=== PATIENT | female | born 1940 | race Two or more races ===

== ENCOUNTER 2016-11-29 18:47 | Emergency (ER) | payer OTHER ==
[~2016-11-29] VITALS: Ht 154.9 cm; Wt 54.4 kg
[2016-11-29 20:07] LABS: Basophils # (auto) 0 uL; Basophils % (auto) 0.5 % (0.0-2.0); Eosinophils # (auto) 0.1 uL; Eosinophils % (auto) 1.2 % (0.0-7.0); Hematocrit 45.5 % (36.0-46.0); Hemoglobin 14.3 g/dL (12.2-16.2); Lymphocytes # (auto) 1.2 uL; Lymphocytes % (auto) 12.2 % (10.0-50.0); Mean Corpuscular Hgb Conc. 31.4 g/dL (32.0-36.0); Mean Corpuscular Volume 92.5 fL (80.0-100.0); Mean Platelet Volume 8.5 fL (7.4-10.4); Monocytes # (auto) 0.7 uL; Monocytes % (auto) 6.6 % (0.0-12.0); Neutrophils # (auto) 7.9 uL; Neutrophils % (auto) 79.5 % (37.0-80.0); Platelet Count (auto) 346 10^3/uL (140-450); Red Cell Distribution Width 14.6 % (11.6-16.0); White Blood Cell 9.9 10^3/uL (4.4-10.8)
[2016-11-29 20:42] LABS: Albumin 3.4 g/dL (3.4-5.0); B-Type Natriuretic Peptide 26.59 pg/mL (0-100); BUN/Creatinine Ratio 19.6; Bilirubin, Total 0.6 mg/dL (0.2-1.0); Calcium 9.7 mg/dL (8.5-10.1); Potassium 3.1 mmol/L (3.5-5.1); Total Protein 7.5 g/dL (6.4-8.2)
[2016-11-29 20:48] LABS: Temperature: 21.9 C (20.0-25.0)
[2016-11-29] MEDS ORDERED: POTASSIUM CHL 20MEQ/100ML 100 ML IV ONE (22:00)
[2016-11-29] MEDS ORDERED: cefTRIAXone 1GM/50ML D5W 50 ML IV ONE (22:00)
[2016-11-30 00:38] VITALS: BP 124/56
== END 2016-11-29 21:49 | disposition short-term general hospital (02) ==
LOC: ER 18:50
DX: J18.9 Pneumonia, unspecified organism (principal); R13.10 Dysphagia, unspecified; E87.6 Hypokalemia; I11.0 Hypertensive heart disease with heart failure; I50.9 Heart failure, unspecified; E78.5 Hyperlipidemia, unspecified; F17.210 Nicotine dependence, cigarettes, uncomplicated
CPT/HCPCS: 36415; 71010; 80053; 83735; 83880; 84484; 85025; 85049; 87040; 93005; 94761; 96361; 96365; 99285; J0696; J3480; J7030

== ENCOUNTER 2016-12-04 21:48 | Emergency (ER) | payer OTHER ==
[~2016-12-04] VITALS: Ht 154.9 cm; Wt 54.4 kg
[2016-12-04 23:24] LABS: Basophils # (auto) 0 uL; Basophils % (auto) 0.2 % (0.0-2.0); Eosinophils # (auto) 0.1 uL; Eosinophils % (auto) 0.7 % (0.0-7.0); Hematocrit 45.6 % (36.0-46.0); Hemoglobin 14.2 g/dL (12.2-16.2); Lymphocytes # (auto) 0.8 uL; Lymphocytes % (auto) 7.1 % (10.0-50.0); Mean Corpuscular Hgb Conc. 31.2 g/dL (32.0-36.0); Mean Corpuscular Volume 92.9 fL (80.0-100.0); Mean Platelet Volume 9.3 fL (7.4-10.4); Monocytes # (auto) 0.5 uL; Monocytes % (auto) 5.1 % (0.0-12.0); Neutrophils # (auto) 9.2 uL; Neutrophils % (auto) 86.9 % (37.0-80.0); Platelet Count (auto) 327 10^3/uL (140-450); Red Cell Distribution Width 14.7 % (11.6-16.0); White Blood Cell 10.6 10^3/uL (4.4-10.8)
[2016-12-04 23:44] LABS: Albumin 3.3 g/dL (3.4-5.0); Calcium 9.1 mg/dL (8.5-10.1); Potassium 3.5 mmol/L (3.5-5.1)
[2016-12-04 23:45] LABS: BUN/Creatinine Ratio 29.4
[2016-12-04] MEDS ORDERED: ALBUTEROL SULF 2.5 MG/0.5ML(0.5%) NEB SOLN NEB ONE (23:45)
[2016-12-04] MEDS ORDERED: IPRATROPIUM BROM 0.5 MG/2.5ML INH SOL NEB ONE (23:45)
[2016-12-04 23:47] LABS: Bilirubin, Total 0.9 mg/dL (0.2-1.0); Total Protein 7.8 g/dL (6.4-8.2)
[2016-12-04 23:49] LABS: INR 1.11 (0.9-1.15); Partial Thromboplastin Time 25.6 sec (22.64-33.71); Prothrombin Time 11.4 sec (9.37-12.3)
[2016-12-04 23:54] LABS: B-Type Natriuretic Peptide 55.8 pg/mL (0-100)
[2016-12-05 03:14] VITALS: BP 124/73
[2016-12-05] MEDS ORDERED: AMOXICILLIN TRIHYDRATE 250 MG CAP PO ONE (03:15)
== END 2016-12-05 04:03 | disposition home or self-care (01) ==
LOC: EDBD 21:48 → EDSEX 21:48 → ER 21:52
DX: J20.9 Acute bronchitis, unspecified (principal); I11.0 Hypertensive heart disease with heart failure; I50.9 Heart failure, unspecified; Z85.3 Personal history of malignant neoplasm of breast
CPT/HCPCS: 36415; 71010; 80053; 83880; 84484; 85025; 85049; 85379; 85610; 85730; 93005; 94640

== ENCOUNTER 2016-12-10 06:25 | Emergency (ER) | payer OTHER, MEDICARE ==
[~2016-12-10] VITALS: Ht 157.5 cm; Wt 61.2 kg
[2016-12-10] MEDS ORDERED: ALBUTEROL SULF 2.5 MG/0.5ML(0.5%) NEB SOLN NEB ONE (07:30)
[2016-12-10] MEDS ORDERED: IPRATROPIUM BROM 0.5 MG/2.5ML INH SOL NEB ONE (07:30)
[2016-12-10 07:32] LABS: Albumin 3.9 g/dL (3.4-5.0); BUN/Creatinine Ratio 16.7; Bilirubin, Total 0.4 mg/dL (0.2-1.0); Calcium 9.2 mg/dL (8.5-10.1); Potassium 4.6 mmol/L (3.5-5.1); Total Protein 8.4 g/dL (6.4-8.2)
[2016-12-10 07:38] LABS: Basophils # (auto) 0 uL; DEFINITIVE VIEW TRANSMISSION; Eosinophils # (auto) 0.1 uL; Eosinophils % (auto) 0.6 % (0.0-7.0); Hematocrit 48.8 % (36.0-46.0); Hemoglobin 15.2 g/dL (12.2-16.2); Lymphocytes # (auto) 1.4 uL; Mean Corpuscular Hemoglobin 29.3 pg (28.0-32.0); Mean Corpuscular Hgb Conc. 31.1 g/dL (32.0-36.0); Mean Corpuscular Volume 94.1 fL (80.0-100.0); Mean Platelet Volume 9.6 fL (7.4-10.4); Monocytes # (auto) 0.7 uL; Monocytes % (auto) 5.3 % (0.0-12.0); Neutrophils # (auto) 10.6 uL; Neutrophils % (auto) 83.1 % (37.0-80.0); Platelet Count (auto) 277 10^3/uL (140-450); Red Cell Distribution Width 14.1 % (11.6-16.0); White Blood Cell 12.8 10^3/uL (4.4-10.8)
[2016-12-10 11:40] LABS: Urine Color Orange (Yellow); Urine Glucose Normal (Normal); Urine Hyaline Cast MOD /lpf (0 - 2); Urine Mucus MODERATE (None Seen); Urine Nitrite Negative (Negative); Urine RBC 41 /hpf (0 - 4); Urine Squamous Epithelial Cell MANY /hpf (<5)
[2016-12-10 11:48] LABS: Urine Blood 1+ /uL (Negative); Urine Ketone 1+ (Negative)
[2016-12-10 11:49] LABS: Urine Bilirubin Negative (Negative)
[2016-12-10] MEDS ORDERED: cefTRIAXone 1GM/50ML D5W 50 ML IV ONE (12:00)
[2016-12-10] MEDS ORDERED: cefTRIAXone SOD 1,000 MG VL ONE (12:45)
[2016-12-10] MEDS ORDERED: LIDOCAINE 1% HCL (LOCAL ANESTH.) INJ 20ML MDV ONE (12:45)
[2016-12-10 13:09] VITALS: BP 148/84
[2016-12-16] MEDS ORDERED: RILU50TA2 PO (07:24)
[2016-12-16] MEDS ORDERED: DEXT20CA PO (07:25)
[2016-12-16] MEDS ORDERED: AML5T PO (07:26)
[2016-12-16] MEDS ORDERED: MIRT15TA3 PO (16:31)
[2016-12-16] MEDS ORDERED: FLUO20CA19 PO (16:31)
[2016-12-16] MEDS ORDERED: COLE1TAB2 PO (16:34)
[2016-12-16] MEDS ORDERED: CEFD250S3 PO (16:59)
== END 2016-12-10 13:20 | disposition short-term general hospital (02) ==
LOC: EDBD 06:25 → ER 06:27
DX: G12.21 Amyotrophic lateral sclerosis (principal); G82.50 Quadriplegia, unspecified; N39.0 Urinary tract infection, site not specified; R53.1 Weakness; E78.5 Hyperlipidemia, unspecified; I11.0 Hypertensive heart disease with heart failure; I50.9 Heart failure, unspecified; F32.9 Major depressive disorder, single episode, unspecified
CPT/HCPCS: 36415; 71010; 80053; 81001; 84484; 85025; 85049; 87040; 93005; 94640; 94761; 96372; 99285; J0696; J2001